=== PATIENT | male | born 2000 | race American Indian/Alaskan Native ===

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

== ENCOUNTER 2021-10-02 15:30 | Emergency (ER) | payer MEDICAID ==
--- NOTE | 2021-10-02 20:17 | Emergency Department Report ---
ED General Adult HPI - General Chief complaint: Urogenital-Male Stated complaint: POSS UTI Source: patient Mode of arrival: Ambulatory Limitations: No Limitations - History of Present Illness Initial comments: 21 year-old male reports to ER with complaints of burning sensation to the outside of his genital area due to not washing hands after eating a spicy noodle soup and patient started to ejaculate while spices and juices from the soup were still on his hands. Patient reports that he has been having a burning sensation for about 2 days with no discharge. Patient reports the burning sensation is on the outside skin and no burning with urination anything. Patient denies any sexual contact or unprotected sex recently. No rashes noted on exam - Related Data Previous Rx's Medication Instructions Recorded Last Taken Type Mupirocin [Bactroban 2%] 15 applic TP TID #15 gm 02/07/20 Unknown Rx Sulfamethoxazole/Trimethoprim 1 each PO BID #20 tablet 02/07/20 Unknown Rx [Bactrim Ds] Dibucaine [Hemorrhoidal-Analgesic] 28 gm TP Q8H PRN #28 oint...g. 10/22/20 Unknown Rx Phenylephrine HCl [Hemorrhoidal 1 each RC Q8H PRN #30 supp.rect 10/22/20 Unknown Rx Suppository] predniSONE 30 mg PO QDAY 5 Days #15 tab 10/02/21 Unknown Rx Allergies Allergy/AdvReac Type Severity Reaction Status Date / Time No Known Allergies Allergy Unverified 02/07/20 14:37 ED Review of Systems ROS: Stated complaint: POSS UTI Other details as noted in HPI Comment: All other systems reviewed and negative Genitourinary: other (Burning sensation to the skin of penis) ED Past Medical Hx - Past Medical History Previous Medical History?: Yes Hx HIV: Yes Additional medical history: hemorrhoids - Social History Smoking Status: Never Smoker Substance Use Type: None - Medications Home Medications: Home Medications Medication Instructions Recorded Confirmed Last Taken Type Mupirocin [Bactroban 2%] 15 applic TP TID #15 gm 02/07/20 Unknown Rx Sulfamethoxazole/Trimethoprim 1 each PO BID #20 tablet 02/07/20 Unknown Rx [Bactrim Ds] Dibucaine [Hemorrhoidal-Analgesic] 28 gm TP Q8H PRN #28 oint...g. 10/22/20 Unknown Rx Phenylephrine HCl [Hemorrhoidal 1 each RC Q8H PRN #30 supp.rect 10/22/20 Unknown Rx Suppository] predniSONE 30 mg PO QDAY 5 Days #15 tab 10/02/21 Unknown Rx ED Physical Exam - General Limitations: No Limitations General appearance: alert, in no apparent distress - Head Head exam: Present: atraumatic, normocephalic - Eye Eye exam: Present: normal appearance - ENT ENT exam: Present: mucous membranes moist - Neck Neck exam: Present: normal inspection - Respiratory Respiratory exam: Present: normal lung sounds bilaterally. Absent: respiratory distress - Cardiovascular Cardiovascular Exam: Present: regular rate, normal rhythm. Absent: systolic murmur, diastolic murmur, rubs, gallop - GI/Abdominal GI/Abdominal exam: Present: soft, normal bowel sounds - Rectal Rectal exam: Present: deferred - exam: Present: normal inspection. Absent: testicular tenderness, urethral discharge, scrotal swelling - Extremities Exam Extremities exam: Present: normal inspection - Back Exam Back exam: Present: normal inspection - Neurological Exam Neurological exam: Present: alert, oriented X3 - Psychiatric Psychiatric exam: Present: normal affect, normal mood - Skin Skin exam: Present: warm, dry, intact, normal color. Absent: rash ED Course Vital Signs 10/02/21 15:44 Temperature 98.1 F Pulse Rate 110 H Respiratory 16 Rate Blood Pressure 111/72 [Left] ED Medical Decision Making - Medical Decision Making 21 year-old male reports to ER with complaints of burning sensation to the outside of his genital area due to not washing hands after eating a spicy noodle soup and patient started to ejaculate while spices and juices from the soup were still on his hands. Patient reports that he has been having a burning sensation for about 2 days with no discharge. Patient reports the burning sensation is on the outside skin and no burning with urination anything. Patient denies any sexual contact or unprotected sex recently. No rashes noted on exam. No swelling noted to the genital area, no discharge noted. Burning sensations due to spices and herbs from the soup. Patient has several times is anything else that he may be leaving him from the story, patient reassured that he honestly got spices and juices from the soup onto his genital area. Denies any sexual contact denies any burning with urination. Based off patient's complaint and events that have been. Patient will be diagnosed with contact dermatitis due to food. Patient to be started on steroids for short course of 5 days. Patient also encouraged to take Benadryl to help with any itching. Patient also informed to follow his primary care provider if symptoms remain the same. If symptoms get worse patient informed to report back to the ER. Patient agrees with plan of care and verbalized understanding. Vital Signs 10/02/21 15:44 Temperature 98.1 F Pulse Rate 110 H Respiratory 16 Rate Blood Pressure 111/72 [Left] VS at at D/C HR 92HR, 110/73BP, 16 rr, 99% RA vitals taken by provider discharge. Critical care attestation.: If time is entered above; I have spent that time in minutes in the direct care of this critically ill patient, excluding procedure time. ED Disposition Clinical Impression: Sensitive skin Contact dermatitis Qualifiers: Contact dermatitis type: irritant Contact dermatitis trigger: food in contact with skin Qualified Code(s): L24.6 - Irritant contact dermatitis due to food in contact with skin Disposition: 01 HOME / SELF CARE / HOMELESS Is pt being admited?: No Condition: Stable Instructions: Contact Dermatitis Prescriptions: predniSONE 30 mg PO QDAY 5 Days #15 tab Time of Disposition: 20:37
[2021-10-02] MEDS ORDERED: predniSONE 10 MG TAB PO ONE (20:52)
[2021-10-02 21:54] VITALS: BP 121/78
== END 2021-10-02 21:54 | disposition home or self-care (01) ==
LOC: ED 15:30
DX: R20.9 Unspecified disturbances of skin sensation (principal)
CPT/HCPCS: 99282; J7512